=== PATIENT | female | born 1985 | race American Indian/Alaskan Native ===

== ENCOUNTER 2018-07-10 23:37 | Emergency (ER) | payer MEDICAID ==
[2018-07-11 00:06] VITALS: BP 141/95
[2018-07-11] MEDS ORDERED: ASPIRIN PO ONE (00:06)
[2018-07-11 00:28] LABS: Basophils % (Auto) 0.3 % (0.0-1.8); Eosinophils # (Auto) 0.1 K/mm3 (0.0-0.4); Eosinophils % (Auto) 1.1 % (0.0-4.3); Hematocrit 32.9 % (30.3-42.9); Lymphocytes # (Auto) 3.5 K/mm3 (1.2-5.4); Lymphocytes % (Auto) 29.9 % (13.4-35.0); Mean Corpuscular HGB Conc 33 % (30-34); Monocytes # (Auto) 0.5 K/mm3 (0.0-0.8); Platelet Count 367 K/mm3 (140-440); Red Cell Distribution Width 18.1 % (13.2-15.2)
[2018-07-11 00:55] LABS: Mean Corpuscular Volume 66 fl (79-97)
[2018-07-11 01:05] LABS: BUN/Creatinine Ratio 15; Blood Urea Nitrogen 12 mg/dL (7-17); Calcium 9.1 mg/dL (8.4-10.2); Hemolysis Index 2
--- NOTE | 2018-07-11 02:06 | Emergency Department Report ---
ED Chest Pain HPI - General Chief Complaint: Chest Pain Stated Complaint: CHEST PAIN Time Seen by Provider: 07/11/18 01:52 Source: patient Mode of arrival: Ambulatory Limitations: No Limitations - History of Present Illness Initial Comments: 32-year-old -[place] female comes to the emergency room complaining of chest pain that's midsternal to left chest pain. She reports that is squeezing and pinches at times. She says it started on Tuesday as been intermittent last a few seconds and goes away. Patient reports some shortness of breath when the pain hits. She denies any cough or nausea no vomiting no URI symptoms. 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 Nothing makes it worse nothing makes it better. She has no pain at this moment. She has taken nothing for pain. Past medical history of asthma stable for years childhood. No known drug allergies, currently takes no medications on a daily basis and no recent past medical history. MD Complaint: chest pain Onset: during rest Pain Location: substernal, left chest Pain Radiation: none Severity scale (0 -10): 0 Quality: tightness Consistency: intermittent Improves With: nothing Worsens With: nothing re: dyspnea. denies: nausea, vomting Other Symptoms: denies: cough, fever, palpitations, burping Treatments Prior to Arrival: none Aspirin use within the Past 7 Days: (0) No - Related Data Allergies Allergy/AdvReac Type Severity Reaction Status Date / Time No Known Allergies Allergy Verified 07/11/18 00:06 Heart Score - HEART Score History: Slightly suspicious EKG: Normal Age: < 45 Risk factors: No known risk factors Troponin: < normal limit HEART Score: 0 ED Review of Systems ROS: Stated complaint: CHEST PAIN Other details as noted in HPI Comment: All other systems reviewed and negative Cardiovascular: chest pain ED Past Medical Hx - Past Medical History Previous Medical History?: Yes Hx Asthma: Yes - Surgical History Past Surgical History?: Yes - Social History Smoking Status: Current Every Day Smoker Substance Use Type: None ED Physical Exam - General Limitations: No Limitations General appearance: alert, in no apparent distress - Head Head exam: Present: atraumatic, normocephalic - Eye Eye exam: Present: EOMI - ENT ENT exam: Present: mucous membranes moist - Neck Neck exam: Present: normal inspection - Respiratory Respiratory exam: Present: normal lung sounds bilaterally, chest wall tenderness - Cardiovascular Cardiovascular Exam: Present: regular rate, normal rhythm. Absent: systolic murmur, diastolic murmur, rubs, gallop - GI/Abdominal GI/Abdominal exam: Present: soft, normal bowel sounds - Extremities Exam Extremities exam: Present: normal inspection, full ROM. Absent: pedal edema - Neurological Exam Neurological exam: Present: alert, oriented X3 - Psychiatric Psychiatric exam: Present: normal affect, normal mood - Skin Skin exam: Present: warm, dry, intact, normal color. Absent: rash ED Course Vital Signs 07/11/18 00:03 Temperature 98.9 F Pulse Rate 88 Respiratory 18 Rate Blood Pressure 141/95 O2 Sat by Pulse 99 Oximetry AUSTIN score - Austin Score Age > 65: (0) No Aspirin use within the Past 7 Days: (0) No 3 or more CAD Risk Factors: (0) No 2 or more Angina events in past 24 hrs: (0) No Known CAD with more than 50% Stenosis: (0) No Elevated Cardiac Markers: (0) No ST Deviation Greater than 0.5mm: (0) No AUSTIN Score: 0 ED Medical Decision Making - Lab Data Result diagrams: 07/11/18 00:08 07/11/18 00:08 Critical care attestation.: If time is entered above; I have spent that time in minutes in the direct care of this critically ill patient, excluding procedure time. ED Disposition Clinical Impression: Atypical chest pain Disposition: ELOPED Is pt being admited?: No Does the pt Need Aspirin: No Condition: Stable Instructions: Chest Pain (ED), Costochondritis (ED) Referrals: BRANDT LEWIS MD [Primary Care Provider] - 3-5 Days
== END 2018-07-11 03:14 | disposition left against medical advice (07) ==
LOC: ED 23:37
DX: R07.89 Other chest pain (principal); J45.909 Unspecified asthma, uncomplicated; F17.200 Nicotine dependence, unspecified, uncomplicated
CPT/HCPCS: 36415; 80048; 84484; 85025; 93005; 93010

== ENCOUNTER 2018-11-14 08:40 | Emergency (ER) | payer MEDICAID ==
[2018-11-14 08:46] VITALS: BP 123/85
--- NOTE | 2018-11-14 09:43 | Emergency Department Report ---
Abscess Boil HPI - HPI Chief Complaint: Skin/Abscess/Foreign Body Stated Complaint: RAISED BUMP AXILLA Time Seen by Provider: 11/14/18 09:06 Duration: 1 Week Location: Upper Extremity (left armpit) Severity: Mild History: Yes Pain, No Fever, No Purulent Drainage, No Numbness, No Foreign Body, No Previous History, No Insect Bite HPI: This 33-year-old female presents with left axilla boil 1 week. Patient states that boil is painful to touch. She denies drainage from the boil. She denies fever assess chills/nausea vomiting/anemia symptoms. Home Medications: Previous Rx's Medication Instructions Recorded Last Taken Type Ibuprofen [Motrin 800 MG tab] 800 mg PO Q8HR PRN #30 tablet 11/14/18 Unknown Rx cephALEXin [Keflex] 500 mg PO Q12HR #14 cap 11/14/18 Unknown Rx Allergies/Adverse Reactions: Allergies Allergy/AdvReac Type Severity Reaction Status Date / Time No Known Allergies Allergy Verified 11/14/18 08:41 ED Review of Systems ROS: Stated complaint: RAISED BUMP AXILLA Other details as noted in HPI Comment: All other systems reviewed and negative ED Past Medical Hx - Past Medical History Hx Asthma: Yes - Social History Smoking Status: Current Every Day Smoker Substance Use Type: None - Medications Home Medications: Home Medications Medication Instructions Recorded Confirmed Last Taken Type Ibuprofen [Motrin 800 MG tab] 800 mg PO Q8HR PRN #30 tablet 11/14/18 Unknown Rx cephALEXin [Keflex] 500 mg PO Q12HR #14 cap 11/14/18 Unknown Rx ED Abscess Boil Physical Exam - Exam General: Vital signs noted. No distress. Alert and acting appropriately. Size: 1 cm Exam: Yes Tenderness, No Surrounding Cellulites/Erythema, No Lymphangitis, No Crepitation, No Heart Murmur, No Normal Neurologic Exam, No Normal Circulation I & D Note - I & D Note I & D Note: Patient positioned appropriately, 1cc lidocaine without epinephrine was used as a local anesthetic. #11 blade scalpal used for single incision. Additional local anesthetic injected into surrounding viable tissue prior to blunt dissection of loculated adhesions. Copius drainage of pus Procedure tolerated without complications. Wound dressed with sterile 4x4 guaze and paper tape. Pt tolerated procedure well. ED Course Vital Signs 11/14/18 11/14/18 08:45 08:46 Temperature 98.2 F Pulse Rate 82 Respiratory 18 Rate Blood Pressure 123/85 O2 Sat by Pulse 98 Oximetry Critical care attestation.: If time is entered above; I have spent that time in minutes in the direct care of this critically ill patient, excluding procedure time. ED Medical Decision Making - Medical Decision Making 33-year-old female presents to the left axilla abscess. Patient tolerated procedure well, see note. Discussed to continue Motrin and start antibiotics prescribed. Vital signs are normal patient is in no acute distress. Discussed the patient to apply heat compresses 3 times a day to the left axilla. Discussed the patient and follow-up with primary care physician. ED Disposition Clinical Impression: Axillary abscess Disposition: - TO HOME OR SELFCARE Is pt being admited?: No Does the pt Need Aspirin: No Condition: Stable Instructions: Abscess Incision and Drainage (ED), Abscess (ED) Additional Instructions: Make sure to follow up with the primary care physician as discussed. Take all your medications as you've been prescribed. If you have any worsening symptoms or develop new symptoms please return to ED immediately. Prescriptions: cephALEXin [Keflex] 500 mg PO Q12HR #14 cap Ibuprofen [Motrin 800 MG tab] 800 mg PO Q8HR PRN #30 tablet PRN Reason: Pain Referrals: JANICE DE LEÓN MD [Primary Care Provider] - 3-5 Days Forms: Work/School Release Form(ED) Time of Disposition: 09:42
[2018-11-14] MEDS ORDERED: NORCO 5/325 PO ONE (09:58)
== END 2018-11-14 10:12 | disposition home or self-care (01) ==
LOC: ED 08:40
DX: L02.412 Cutaneous abscess of left axilla (principal); J45.909 Unspecified asthma, uncomplicated; F17.200 Nicotine dependence, unspecified, uncomplicated
CPT/HCPCS: 99282

== ENCOUNTER 2019-01-16 05:57 | Emergency (ER) | payer MEDICAID ==
[2019-01-16 06:02] VITALS: BP 148/95
[2019-01-16] MEDS ORDERED: DECADRON IM ONE (07:43)
--- NOTE | 2019-01-16 07:43 | Emergency Department Report ---
HPI - General Chief Complaint: Allergic Reaction Time Seen by Provider: 01/16/19 07:42 ED Past Medical Hx - Past Medical History Previous Medical History?: Yes Hx Asthma: Yes - Surgical History Past Surgical History?: Yes Additional Surgical History: CSection, Left Fallopian Tube removed, Left wrist surgery - Social History Smoking Status: Current Every Day Smoker Substance Use Type: None - Medications Home Medications: Home Medications Medication Instructions Recorded Confirmed Last Taken Type predniSONE [Deltasone] 20 mg PO DAILY #5 tablet 01/16/19 Unknown Rx ED Review of Systems ROS: Stated complaint: ALLERGIC REACTION AFTER EATING A HOT DOG Other details as noted in HPI Comment: All other systems reviewed and negative Physical Exam - Physical Exam Vital Signs: Vital Signs 01/16/19 06:01 Temperature 98.4 F Pulse Rate 87 Respiratory 18 Rate Blood Pressure 148/95 O2 Sat by Pulse 97 Oximetry Physical Exam: a/o controlling secretions taking po s1s2 lungs cta ambulatory w sob mild left lateral neck swelling on exam right neck normal no abscess no dental pain uvula midline; no abscess no ludwigs neck supple abd snt ED Course Vital Signs 01/16/19 06:01 Temperature 98.4 F Pulse Rate 87 Respiratory 18 Rate Blood Pressure 148/95 O2 Sat by Pulse 97 Oximetry ED Medical Decision Making - Radiology Data Radiology results: report reviewed, image reviewed - Medical Decision Making XRAY NEG FOR FB decadron IM in ER dc home with dc plan of care and pcp follow up Vital Signs 01/16/19 06:01 Temperature 98.4 F Pulse Rate 87 Respiratory 18 Rate Blood Pressure 148/95 O2 Sat by Pulse 97 Oximetry - Differential Diagnosis RO FB Critical care attestation.: If time is entered above; I have spent that time in minutes in the direct care of this critically ill patient, excluding procedure time. ED Disposition Clinical Impression: Soft tissue swelling Disposition: DC-01 TO HOME OR SELFCARE Is pt being admited?: No Does the pt Need Aspirin: No Condition: Stable Additional Instructions: MEDS ORDERED TODAY CHEW FOOD WELL AND EAT SMALL BITES; SWELLING WILL GO DOWN WITH MEDS FOLLOW UP WITH PCP IN 48 HOURS IF NO BETTER REFERRAL BELOW XRAY NORMAL TODAY Prescriptions: predniSONE [Deltasone] 20 mg PO DAILY #5 tablet Referrals: JANICE DE LEÓN MD [Primary Care Provider] - 3-5 Days JACI COLEMAN MD [Staff Physician] - 3-5 Days Time of Disposition: 08:41
--- NOTE | 2019-01-16 08:37 | XRay Report ---
SOFT TISSUE NECK, 2 VIEWS INDICATION: LEFT NECK SWELLING AFTER EATING HOT DOG. COMPARISON: None. IMPRESSION: The base of the tongue, vallecula, epiglottis, prevertebral soft tissues and laryngeal s tructures are unremarkable. The upper trachea is patent. Neck soft tissues are unremarkable. Normal bony structures. Signer Name: Tushar Valverde Jr, MD Signed: 01/16/2019 8:33 AM Workstation Name: [id number]
== END 2019-01-16 08:54 | disposition home or self-care (01) ==
LOC: ED 05:57
DX: T78.1XXA Other adverse food reactions, not elsewhere classified, initial encounter (principal); M79.89 Other specified soft tissue disorders; J45.909 Unspecified asthma, uncomplicated; F17.200 Nicotine dependence, unspecified, uncomplicated; Z98.890 Other specified postprocedural states; X58.XXXA Exposure to other specified factors, initial encounter; Y93.89 Activity, other specified; Y92.89 Other specified places as the place of occurrence of the external cause; Y99.8 Other external cause status
CPT/HCPCS: 70360; 96372; 99283; J1100

== ENCOUNTER 2020-11-04 17:00 | Emergency (ER) | payer OTHER, MEDICAID ==
[2020-11-04 17:29] VITALS: BP 138/84
== END 2020-11-04 22:10 | disposition left against medical advice (07) ==
LOC: ED 17:00
DX: Z04.1 Encounter for examination and observation following transport accident (principal); Z53.21 Procedure and treatment not carried out due to patient leaving prior to being seen by health care provider; V89.2XXA Person injured in unspecified motor-vehicle accident, traffic, initial encounter; Y93.89 Activity, other specified; Y92.488 Other paved roadways as the place of occurrence of the external cause; Y99.8 Other external cause status

== ENCOUNTER 2021-03-27 04:12 | Emergency (ER) | payer MEDICAID, OTHER ==
--- NOTE | 2021-03-27 05:54 | Event Note ---
ED Screening Note Date of service: 03/27/21 Time: 05:53 ED Screening Note: Patient 35-year-old -[place] female history of asthma who presents for cough productive yellow thick fever and sore throat x3 days. Patient is not Covid vaccinated. There is associated shortness of breath that improves with albuterol inhaler. Last menstrual cycle 1 month ago. Patient drove self to ED today is ambulatory without distress at this time. This initial assessment/diagnostic orders/clinical plan/treatment(s) is/are subject to change based on patients health status, clinical progression and re- assessment by fellow clinical providers in the ED. Further treatment and workup at subsequent clinical providers discretion. Patient/guardian urged not to elope from the ED as their condition may be serious if not clinically assessed and managed. Initial orders include: UA, HCG, CXR
[2021-03-27] MEDS ORDERED: IPRATROPIUM/ALBUTEROL SULFATE 3 ML AMPUL.NEB IH ONE (08:32)
[2021-03-27] MEDS ORDERED: ONDANSETRON 4 MG/2 ML INJ IV ONE (08:32)
[2021-03-27] MEDS ORDERED: methylPREDNISolone Sod Succinate 125 MG/2 ML INJ IV ONE (08:32)
[2021-03-27] MEDS ORDERED: SODIUM CHLORIDE 0.9% 1000 ML 1,000 ML IV ONE (08:32)
[2021-03-27] MEDS ORDERED: MORPHINE 4 MG/1 ML INJ IV ONE (08:32)
--- NOTE | 2021-03-27 08:37 | Emergency Department Report ---
ED Syncope HPI - General Chief Complaint: Syncope Stated Complaint: SYNCOPE EPISODE Time Seen by Provider: 03/27/21 08:10 Source: patient Exam Limitations: no limitations - History of Present Illness Initial Comments: 35-year-old female with a past medical history of asthma and obesity presents to the ER today with complaints of syncope. Patient states that all day yesterday she was having generalized muscle spasms, then last night she after she coughed, she had a severe spasm in her right flank left abdominal area while sitting on the bed after which she states that she passed out. She is not sure exactly how long she was out. She states that she was still sitting in the bed when she passed out. She states that she was also very diaphoretic at the time the pain flared up. She states that her family called EMS, they checked her vital signs and everything looked okay and so she did not come to the ER at that point. She states about 2 hours later similar symptoms happened when she started again with severe pain, she got diaphoretic and felt like she was about to pass out. This time she described a near syncopal episode but not a full syncopal episode and so she came to the ER. She states that over the past 2 days her asthma has been flaring up, she has had increased cough with chest tightness, wheezing and shortness of breath, but she states that was concerning to her is that she has been having just generalized muscle spasms with severe spasms in her left flank left abdominal area which she has never had before. He also reports spasms in her left calf. She states that she has been using her inhaler and her nebulizer 4 to 5 hours. She reports urinary frequency but no UTI symptoms. She states that all day yesterday she was having diarrhea and she states that all day yesterday she had a fever, highest measured temp was 101. She denies any nausea or vomiting. She denies any runny nose, nasal congestion, or sore throat. She admits that 3 weeks ago she was admitted for surgical I&D of an abdominal abscess. She states that she was hospitalized for 1 day. She denies any history of PE or DVT. Other than asthma she denies any other significant past history. Timing/Prior Episodes: single episode today Precipitating Factors: Positive: pain - Related Data Allergies/Adverse Reactions: Allergies No Known Allergies Allergy (Verified 11/14/18 08:41) Home Medications: Ambulatory Orders predniSONE [Deltasone] 20 mg PO DAILY #5 tablet 01/16/19 ALBUTEROL NEB's [Proventil 0.083% NEBS] 2.5 mg IH QID PRN #30 vial 03/27/21 Albuterol Mdi (or & Nicu Only) [ProAir HFA Inhaler] 2 puff IH QID PRN #8.5 gram 03/27/21 Benzonatate [Tessalon Perles] 100 mg PO Q8HR PRN #30 capsule 03/27/21 Tramadol HCl/Acetaminophen [Ultracet Tablet] 1 each PO Q6HR PRN #12 tablet 03/27/21 methOCARBAMOL [Robaxin TAB] 750 mg PO Q8H PRN #30 tablet 03/27/21 predniSONE [Deltasone] 50 mg PO QDAY #5 tablet 03/27/21 ED Review of Systems ROS: Stated complaint: SYNCOPE EPISODE Other details as noted in HPI Comment: All other systems reviewed and negative Constitutional: fever Respiratory: cough, shortness of breath, wheezing Cardiovascular: chest pain Gastrointestinal: abdominal pain, diarrhea. denies: nausea, vomiting Genitourinary: denies: urgency, dysuria, frequency, hematuria, discharge, abnormal menses, dyspareunia Musculoskeletal: myalgia. denies: back pain, joint swelling, arthralgia Skin: denies: rash, lesions, change in color, change in hair/nails, pruritus Neurological: other (Syncope). denies: headache, weakness, paresthesias Psychiatric: denies: anxiety, depression, visual hallucinations, homicidal thoughts, suicidal thoughts Hematological/Lymphatic: denies: easy bleeding, easy bruising, swollen glands ED Past Medical Hx - Past Medical History Hx Asthma: Yes - Surgical History Additional Surgical History: CSection, Left Fallopian Tube removed, Left wrist surgery - Social History Smoking Status: Current Every Day Smoker Substance Use Type: None - Medications Home Medications: Home Medications Medication Instructions Recorded Confirmed Last Taken Type predniSONE [Deltasone] 20 mg PO DAILY #5 tablet 01/16/19 Unknown Rx ALBUTEROL NEB's [Proventil 0.083% 2.5 mg IH QID PRN #30 vial 03/27/21 Unknown Rx NEBS] Albuterol Mdi (or & Nicu Only) 2 puff IH QID PRN #8.5 gram 03/27/21 Unknown Rx [ProAir HFA Inhaler] Benzonatate [Tessalon Perles] 100 mg PO Q8HR PRN #30 capsule 03/27/21 Unknown Rx Tramadol HCl/Acetaminophen 1 each PO Q6HR PRN #12 tablet 03/27/21 Unknown Rx [Ultracet Tablet] methOCARBAMOL [Robaxin TAB] 750 mg PO Q8H PRN #30 tablet 03/27/21 Unknown Rx predniSONE [Deltasone] 50 mg PO QDAY #5 tablet 03/27/21 Unknown Rx ED Physical Exam - General Limitations: No Limitations General appearance: alert, in no apparent distress, obese - Head Head exam: Present: atraumatic, normocephalic, normal inspection - Eye Eye exam: Present: normal appearance, PERRL, EOMI Pupils: Present: normal accommodation - Neck Neck exam: Present: normal inspection, full ROM - Respiratory Respiratory exam: Present: normal lung sounds bilaterally, wheezes (Diffuse expiratory wheezing noted). Absent: respiratory distress, rales, rhonchi, stridor - Cardiovascular Cardiovascular Exam: Present: normal rhythm, tachycardia, normal heart sounds - GI/Abdominal GI/Abdominal exam: Present: soft, tenderness (Right upper quadrant). Absent: distended, guarding, rebound - Extremities Exam Extremities exam: Present: normal inspection, full ROM, calf tenderness. Absent: tenderness, pedal edema - Back Exam Back exam: Present: normal inspection, full ROM - Neurological Exam Neurological exam: Present: alert, oriented X3, CN II-XII intact, normal gait - Psychiatric Psychiatric exam: Present: normal affect, normal mood - Skin Skin exam: Present: intact ED Course Vital Signs 03/27/21 03/27/21 03/27/21 04:21 08:47 09:03 Temperature 98.9 F Pulse Rate 113 H 95 H Respiratory 24 18 18 Rate Blood Pressure 123/76 Blood Pressure 132/90 [Left] O2 Sat by Pulse 96 96 Oximetry 03/27/21 13:42 Temperature Pulse Rate 111 H Respiratory 16 Rate Blood Pressure Blood Pressure 113/70 [Left] O2 Sat by Pulse Oximetry ED Medical Decision Making - Lab Data Result diagrams: 03/27/21 08:45 03/27/21 08:31 - EKG Data EKG shows normal: sinus rhythm Rate: normal (99) - EKG Data Interpretation: normal EKG - Radiology Data Radiology results: report reviewed Patient: ISHAAN REESE MR#: [id number] : 1985 Acct:[id number] Age/Sex: 35 / F ADM Date: 03/27/21 Loc: ED Attending Dr: Ordering Physician: KRAIG ARMSTRONG NP Date of Service: 03/27/21 Procedure(s): XR chest routine 2V Accession Number(s): [id number] cc: KRAIG ARMSTRONG NP Fluoro Time In Minutes: CHEST 2 VIEWS INDICATION: cough fever. COMPARISON: None FINDINGS: Support devices: None. Heart: Within normal limits. Lungs/pleura: No acute air space or interstitial disease. No pneumothorax. Additional findings: None. IMPRESSION: No acute findings. Signer Name: Tushar Valverde Jr, MD Signed: 03/27/2021 11:36 AM Workstation Name: [id number] Transcribed By: TTR Dictated By: TUSHAR VALVERDE JR, MD Electronically Authenticated By: TUSHAR VALVERDE JR, MD Signed Date/Time: 03/27/211135 DD/ 113 TD/TT: Patient: ISHAAN REESE MR#: [id number] : 1985 Acct:[id number] Age/Sex: 35 / F ADM Date: 03/27/21 Loc: ED Attending Dr: Ordering Physician: FELISHA PINZON Date of Service: 03/27/21 Procedure(s): VL venous duplex LE BILAT Accession Number(s): [id number] cc: FELISHA PINZON DUPLEX DOPPLER LOWER EXTREMITY VEINS, BILATERAL INDICATION / CLINICAL INFORMATION: calf pain. TECHNIQUE: Duplex doppler imaging was performed through the veins of both lower extremities using venous compression and other maneuvers. COMPARISON: None available. FINDINGS: RIGHT COMMON FEMORAL VEIN: Negative. RIGHT FEMORAL VEIN: Negative. RIGHT POPLITEAL VEIN: Negative. RIGHT CALF VEINS: Negative. LEFT COMMON FEMORAL VEIN: Negative. LEFT FEMORAL VEIN: Negative. LEFT POPLITEAL VEIN: Negative. LEFT CALF VEINS: Negative. ADDITIONAL FINDINGS: None. IMPRESSION: 1. No sonographic evidence for DVT in either lower extremity. Signer Name: Hood Stone MD Signed: 03/27/2021 10:51 AM Workstation Name: [id number] Transcribed By: SW Dictated By: Hood Stone MD Electronically Authenticated By: Hood Stone MD Signed Date/Time: 03/27/21 1051 DD/ 1050 TD/TT: Patient: ISHAAN REESE MR#: [id number] : 1985 Acct:[id number] Age/Sex: 35 / F ADM Date: 03/27/21 Loc: ED Attending Dr: Ordering Physician: FELISHA PINZON Date of Service: 03/27/21 Procedure(s): CT abdomen pelvis w con Accession Number(s): [id number] cc: FELISHA PINZON CT OF THE ABDOMEN AND PELVIS WITH INTRAVENOUS CONTRAST INDICATION / CLINICAL INFORMATION: Severe right flank/right abdominal pain Syncope/shortness of breath/chest pain. TECHNIQUE: The patient received 100 cc Omnipaque [address] scans at this location are performed using CT dose reduction for ALARA by means of automated exposure control. COMPARISON: None available. FINDINGS: ABDOMEN: The gallbladder is contracted without visible gallstones. The liver measures 20 cm in length and demonstrates mild diffuse fatty infiltration without focal lesion. The bile ducts, pancreas, spleen, adrenal glands and left kidney demonstrate no significant abnormality. There is a subcentimeter simple cyst in the right mid kidney anteromedially. There is no evidence of bowel obstruction, wall thickening or free air. No adenopathy is present. The lung bases are clear. PELVIS: The distal ureters and urinary bladder are normal. There is mild nonspecific thin, linear calcification along the serosal margin of the uterus on the left which is of doubtful clinical significance. The uterus is otherwise unremarkable. There is a small follicular cyst in the right ovary without free fluid. A normal appendix is identified and there is no evidence of diverticulitis. I do not identify a hernia. No acute osseous abnormality is present. IMPRESSION: 1. No acute abnormality. 2. Mild hepatomegaly with mild diffuse fatty infiltration. Signer Name: Tavo Le MD Signed: 03/27/2021 12:01 PM Workstation Name: [id number] Transcribed By: RT Dictated By: Tavo Le MD Electronically Authenticated By: Tavo Le MD Signed Date/Time: 03/27/21 1201 DD/ 1156 TD/TT: Patient: ISHAAN REESE MR#: [id number] : 1985 Acct:[id number] Age/Sex: 35 / F ADM Date: 03/27/21 Loc: ED Attending Dr: Ordering Physician: FELISHA PINZON Date of Service: 03/27/21 Procedure(s): CT angio chest Accession Number(s): [id number] cc: FELISHA PINZON CTA CHEST WITH IV CONTRAST INDICATION: Syncope/shortness of breath/chest pain OMNI 350 100 ML. TECHNIQUE: Axial CT images were obtained through the chest after injection of IV contrast. 3 plane MIP reconstructions were produced. All CT scans at this location are performed using CT dose reduction for ALARA by means of automated exposure control. COMPARISON: None available. FINDINGS: Pulmonary Arteries: No pulmonary emboli. Thoracic Aorta: No acute abnormality. Heart: Normal. Lungs: No acute air space or interstitial disease. Pleura: No pleural effusion. No pneumothorax. Lymph Nodes: No significant adenopathy. Additional Findings: None. Skeletal Structures: No significant osseous abnormality. IMPRESSION: 1. No CT evidence for pulmonary embolism. 2. No acute findings. Signer Name: Hood Stone MD Signed: 03/27/2021 11:50 AM Workstation Name: [id number] Transcribed By: SW Dictated By: Hood Stone MD Electronically Authenticated By: Hood Stone MD Signed Date/Time: 03/27/21 1150 DD/ 1147 TD/TT: - Medical Decision Making Patient presented to the ER today with complaints of a syncopal episode which was preceded by pain. She has been having generalized pain, but worse right flank and right abdominal as well as shortness of breath, wheezing and cough, but she does have a history of asthma.. Patient syncopal episode could likely be related to vasovagal syncope, but given her recent hospitalization, severe pain in her right flank and right abdominal area her work-up today will include work-up to rule out PE, as well as acute intra-abdominal abnormality, acute cardiac event, sepsis, infection, severe asthma exacerbation requiring hospitalization. Do not suspect intracranial abnormality, or stroke or TIA as patient is awake alert oriented x3, she is neurologically intact, and with a normal gait. The patient presented with a history of a syncopal episode, right flank pain and abdominal pain as well as shortness of breath, and wheezing which she relates t o as a flareup of her asthma. Patient is now resting comfortably and feels better, is alert and is in no distress. The repeat examination is unremarkable and benign. The patient is neurologically intact, has a normal mental status and is ambulatory in the ER. The EKG shows no signs of acute ischemia. CTA chest, CT abdomen pelvis with IV contrast and venous Dopplers are negative for anything acute. Labs reviewed, CBC shows leukocytosis of 18, but labs otherwise unremarkable. Lactic acid is normal. Urinalysis appears more contaminated than true UTI. The elevated wbc likely related to inflammatory response, work-up today does not suggest sepsis and no obvious signs of serious bacterial infection on work-up today. Suspect that her syncopal episode could be vasovagal as it was preceded by pain. The history, exam, diagnostic testing and current condition does not suggest that this patient is having acute [place], significant arrhythmia, unstable angina, meningitis, stroke/TIA, significant vascular events, gastrointestinal bleeding, sepsis or other significant pathology that would warrant further testing, continued ED treatment, admission or cardiology or other specialist consultation at this time. Vital signs have been stable. Discussed all results with patient. Discussed suspected diagnosis and treatment plan with patient. She expressed understanding of all instructions and agree with plan. The patient's condition is stable and appropriate for discharge. The patient will pursue further outpatient evaluation with the primary care physician. Critical care attestation.: If time is entered above; I have spent that time in minutes in the direct care of this critically ill patient, excluding procedure time. ED Disposition Clinical Impression: Right flank pain, Vasovagal syncope, Abdominal pain, Asthma exacerbation Disposition: 01 HOME / SELF CARE / HOMELESS Is pt being admited?: No Does the pt Need Aspirin: No Condition: Stable Instructions: Vasovagal Syncope, Pediatric, Abdominal Pain, Adult, Jffy-fn-Cyol, Flank Pain, Adult, Jzfu-ah-Bycd, Asthma, Adult, [id number]-Yuqz, Syncope (ED) Additional Instructions: Recommend that you continue using the albuterol MDI as well as your nebulizer treatments to help with your asthma. Take the prednisone as prescribed. Take the Tessalon Perles as prescribed to help with cough. Take the Ultram, and the Robaxin to help with pain and muscle spasms. I do recommend that you follow-up closely with your PCP. Return to the ER if your symptoms changes or worsens in any way. Prescriptions: predniSONE [Deltasone] 50 mg PO QDAY #5 tablet Albuterol Mdi (or & Nicu Only) [ProAir HFA Inhaler] 2 puff IH QID PRN #8.5 gram PRN Reason: Shortness Of Breath ALBUTEROL NEB's [Proventil 0.083% NEBS] 2.5 mg IH QID PRN #30 vial PRN Reason: Wheezing methOCARBAMOL [Robaxin TAB] 750 mg PO Q8H PRN #30 tablet PRN Reason: Muscle Spasm Benzonatate [Tessalon Perles] 100 mg PO Q8HR PRN #30 capsule PRN Reason: Cough Tramadol HCl/Acetaminophen [Ultracet Tablet] 1 each PO Q6HR PRN #12 tablet PRN Reason: Pain Referrals: PRIMARY CARE,MD [Primary Care Provider] - 3-5 Days Forms: Work/School Release Form(ED) Time of Disposition: 13:18 Print Language: CAPE VERDEAN
[2021-03-27 08:39] LABS: Bacteria,Urine 2+ /HPF (Negative); Bilirubin,Urine NEG (Negative); Blood,Urine NEG (Negative); Color,Urine Yellow (Yellow); Hyaline Casts,Urine 7 /LPF; Mucus,Urine 2+ /HPF; Urobilinogen,Urine < 2.0 mg/dL (<2.0)
[2021-03-27 08:44] LABS: RBC,Urine < 1.0 /HPF (0.0-6.0)
[2021-03-27 09:07] LABS: Basophils % (Auto) 0.2 % (0.0-1.8); Eosinophils # (Auto) 0.2 K/mm3 (0.0-0.4); Eosinophils % (Auto) 1.2 % (0.0-4.3); Hemoglobin 10.9 gm/dl (10.1-14.3); Lymphocytes # (Auto) 1.5 K/mm3 (1.2-5.4); Lymphocytes % (Auto) 8.2 % (13.4-35.0); Mean Corpuscular HGB Conc 31 % (30-34); Monocytes # (Auto) 0.7 K/mm3 (0.0-0.8); Monocytes % (Auto) 3.8 % (0.0-7.3); Platelet Count 398 K/mm3 (140-440); Red Blood Count 5.52 M/mm3 (3.65-5.03)
[2021-03-27 09:20] LABS: Mean Corpuscular Volume 64 fl (79-97)
[2021-03-27 09:32] LABS: Alanine Aminotransferase 20 units/L (7-56); BUN/Creatinine Ratio 13; Blood Urea Nitrogen 10 mg/dL (7-17); Calcium 10.1 mg/dL (8.4-10.2); Hemolysis Index 21
[2021-03-27 09:34] LABS: HCG Qualitative,Urine Negative (Negative)
--- NOTE | 2021-03-27 10:55 | Vascular Lab Report ---
DUPLEX DOPPLER LOWER EXTREMITY VEINS, BILATERAL INDICATION / CLINICAL INFORMATION: calf pain. TECHNIQUE: Duplex doppler imaging was performed through the veins of both lower extremities using venous rory jaquan and other maneuvers. COMPARISON: None available. FINDINGS: RIGHT COMMON FEMORAL VEIN: Negative. RIGHT FEMORAL VEIN: Negative. RIGHT POPLITEAL VEIN: Negative. RIGHT CALF VEINS: Negative. LEFT COMMON FEMORAL VEIN: Negative. LEFT FEMORAL VEIN: Negative. LEFT POPLITEAL VEIN: Negative. LEFT CALF VEINS: Negative. ADDITIONAL FINDINGS: None. IMPRESSION: 1. No sonographic evidence for DVT in either lower extremity. Signer Name: Hood Stone MD Signed: 03/27/2021 10:51 AM Workstation Name: [id number]
--- NOTE | 2021-03-27 11:41 | XRay Report ---
CHEST 2 VIEWS INDICATION: cough fever. COMPARISON: None FINDINGS: Support devices: None. Heart: Within normal limits. Lungs/pleura: No acute air space or interstitial disease. No pneumothorax. Additional findings: None. IMPRESSION: No acute findings. Signer Name: Tushar Valverde Jr, MD Signed: 03/27/2021 11:36 AM Workstation Name: [id number]
--- NOTE | 2021-03-27 11:55 | Cat Scan Report ---
CTA CHEST WITH IV CONTRAST INDICATION: Syncope/shortness of breath/chest pain OMNI 350 100 ML. TECHNIQUE: Axial CT images were obtained through the chest after injection of IV contrast. 3 plane MIP reconstru ctions were produced. All CT scans at this location are performed using CT dose reduction for ALARA b y means of automated exposure control. COMPARISON: None available. FINDINGS: Pulmonary Arteries: No pulmonary emboli. Thoracic Aorta: No acute abnormality. Heart: Normal. Lungs: No acute air space or interstitial disease. Pleura: No pleural effusion. No pneumothorax. Lymph Nodes: No significant adenopathy. Additional Findings: None. Skeletal Structures: No significant osseous abnormality. IMPRESSION: 1. No CT evidence for pulmonary embolism. 2. No acute findings. Signer Name: Hood Stone MD Signed: 03/27/2021 11:50 AM Workstation Name: [id number]
--- NOTE | 2021-03-27 12:06 | Cat Scan Report ---
CT OF THE ABDOMEN AND PELVIS WITH INTRAVENOUS CONTRAST INDICATION / CLINICAL INFORMATION: Severe right flank/right abdominal pain Syncope/shortness of breat h/chest pain. TECHNIQUE: The patient received 100 cc Omnipaque [address] scans at this location are performed using CT dose reduction for ALARA by means of automated exposure control. COMPARISON: None available. FINDINGS: ABDOMEN: The gallbladder is contracted without visible gallstones. The liver measures 20 cm in length and demonstrates mild diffuse fatty infiltration without focal lesion. The bile ducts, pancreas, spl een, adrenal glands and left kidney demonstrate no significant abnormality. There is a subcentimeter simple cyst in the right mid kidney anteromedially. There is no evidence of bowel obstruction, wall t hickening or free air. No adenopathy is present. The lung bases are clear. PELVIS: The distal ureters and urinary bladder are normal. There is mild nonspecific thin, linear francy cification along the serosal margin of the uterus on the left which is of doubtful clinical significa nce. The uterus is otherwise unremarkable. There is a small follicular cyst in the right ovary withou t free fluid. A normal appendix is identified and there is no evidence of diverticulitis. I do not id entify a hernia. No acute osseous abnormality is present. IMPRESSION: 1. No acute abnormality. 2. Mild hepatomegaly with mild diffuse fatty infiltration. Signer Name: Tavo Le MD Signed: 03/27/2021 12:01 PM Workstation Name: [id number]
[2021-03-27 13:45] VITALS: BP 113/70
--- NOTE | 2021-04-02 09:46 | Electrocardiograph Report ---
[facility] Test Date: 2021-03-27 Test Time: 10:12:22 Pat Name: ISHAAN REESE Department: Room: Gender: F Lead Massage Therapist: KATARZYNA : 1985 Requested By: KRAIG ARMSTRONG Order Number: [id number] Reading MD: Diaz Rock Measurements Intervals [place] Rate: 99 P: 23 DE: 140 QRS: 43 QRSD: 76 T: 30 QT: 362 QTc: 464 Interpretive Statements Sinus rhythm No previous ECG available for comparison Electronically Signed On 04-02-2021 9:46:11 EDT by Diaz Rock
== END 2021-03-27 14:10 | disposition home or self-care (01) ==
LOC: ED 04:12
DX: R55 Syncope and collapse (principal); R10.9 Unspecified abdominal pain; J45.901 Unspecified asthma with (acute) exacerbation; R05.9 Cough, unspecified; R07.89 Other chest pain; R06.02 Shortness of breath; Z98.890 Other specified postprocedural states; F17.200 Nicotine dependence, unspecified, uncomplicated
CPT/HCPCS: 36415; 71046; 71275; 74177; 80053; 81001; 81025; 82140; 83690; 83735; 84484; 85025; 87040; 87086; 93005; 93970; 94640; 96361; 96374; 96375; 99285; J2270; J2405; J2930; J7030; Q9967